=== PATIENT | male | born 1995 | race Hispanic/Latino ===

== ENCOUNTER 2018-08-30 19:33 | Emergency (ER) | payer SELFPAY ==
[2018-08-30 19:35] VITALS: RESP 18; TEMP 98.3
--- NOTE | 2018-08-30 20:03 | ED PDOC ---
HPI: Psych/Substance Abuse Time Seen by Provider: 08/30/18 19:40 Chief Complaint (Nursing): Alcohol Ingestion Chief Complaint (Provider): Alcohol Ingestion History Per: Patient History/Exam Limitations: intoxication Modifying Factor(s): Alcohol Additional Complaint(s): 22 y/o male brought to the ED via EMS for alcohol intoxication. Patient reports he is not sure why he is here. Patient states he was drinking heavily at a local bar and was supposed to leave with friends. However, a staff member at the bar advised him that he couldn't leave with friends and called EMS to be brought here. Otherwise, patient denies any vomiting, fall, injury or pain. Patient offers no medical complaints at this time. Of note, patient reports he lives in [place] and was [place] on taking the light rail [place] to get home. History may be unreliable due to intoxication. PMD: none provided. Past Medical History Reviewed: Historical Data, Nursing Documentation, Vital Signs Vital Signs: Last Vital Signs Temp 98.3 F 08/30/18 19:35 Pulse 100 H 08/30/18 19:35 Resp 18 08/30/18 19:35 BP 143/87 08/30/18 19:35 Pulse Ox 98 08/30/18 19:35 - Medical History PMH: No Chronic Diseases - Surgical History Surgical History: No Surg Hx - Family History Family History: States: Unknown Family Hx - Social History Alcohol: Social - Allergies Allergies/Adverse Reactions: Allergies Allergy/AdvReac Type Severity Reaction Status Date / Time lactase [From Dairy Aid] Allergy RASH Verified 08/30/18 19:36 nut - unspecified Allergy RASH Verified 08/30/18 19:36 Penicillins Allergy RASH Verified 08/30/18 19:36 shellfish derived Allergy RASH Verified 08/30/18 19:37 Review of Systems ROS Statement: Except As Marked, All Systems Reviewed And Found Negative Psych: Positive for: Other (alcohol intoxication) Physical Exam - Reviewed Nursing Documentation Reviewed: Yes Vital Signs Reviewed: Yes - Physical Exam Appears: Positive for: No Acute Distress Head Exam: Positive for: ATRAUMATIC, NORMOCEPHALIC Skin: Positive for: Warm, Dry Eye Exam: Positive for: EOMI, PERRL ENT: Negative for: Pharyngeal Erythema, Tonsillar Exudate Neck: Positive for: Painless ROM, Supple Cardiovascular/Chest: Positive for: Regular Rate, Rhythm. Negative for: Murmur Respiratory: Positive for: Normal Breath Sounds. Negative for: Respiratory Distress Back: Positive for: Normal Inspection. Negative for: Decreased ROM Extremity: Positive for: Normal ROM. Negative for: Deformity Neurologic/Psych: Positive for: Alert, Oriented (x3), Gait (steady), Other (mildly slurred speech). Negative for: Motor/Sensory Deficits - ECG O2 Sat by Pulse Oximetry: 98 (RA) Pulse Ox Interpretation: Normal Medical Decision Making Medical Decision Making: Impression: Alcohol Intoxication Plan: -- Will observe for clinical soberiety 2020 Amublating without difficulty. No signs of withdrawal. Stable for dc. Scribe Attestation: Documented by Godfrey Silver, acting as a scribe for Jeannie Thakkar MD. Provider Scribe Attestation: All medical record entries made by the Scribe were at my direction and personally dictated by me. I have reviewed the chart and agree that the record accurately reflects my personal performance of the history, physical exam, med ica decision making, and the department course for this patient. I have also personally directed, reviewed, and agree with the discharge instructions and disposition. Disposition - Clinical Impression Clinical Impression: Alcohol intoxication - Disposition Disposition: Routine/Home Disposition Time: 20:25 Condition: STABLE Instructions: Alcohol Use - When Is Drinking a Problem?
[2018-08-30 20:20] VITALS: BP 132/87; PULSE 102
[2018-08-30 20:54] VITALS: O2SAT 98
== END 2018-08-30 20:26 | disposition home or self-care (01) ==
LOC: H.ER 19:33
DX: F10.129 Alcohol abuse with intoxication, unspecified (principal); Z88.0 Allergy status to penicillin